=== PATIENT | female | born 1960 | race Caucasian/White ===

== ENCOUNTER 2018-01-03 20:17 | Inpatient (IN) ==
[2018-01-03] MEDS ORDERED: NITROGLYCERIN 2% OINTMENT 1gm PACKET TRANSDERMA ONE (20:26)
[2018-01-03] MEDS ORDERED: NS 1,000 ML IV ONE (20:26)
[2018-01-03] MEDS ORDERED: SALINE FLUSH 10ml SYRINGE IVF PRN (20:26)
--- NOTE | 2018-01-03 20:32 | Emergency Department Report ---
Chest Pain HPI - General Chief Complaint: Chest Pain Stated Complaint: cp Source: patient, EMS Mode of arrival: EMS Limitations: no limitations - History of Present Illness HPI narrative: Patient is felt malaise all day, and then sometime between 4 and 5 PM she began having left-sided deep aching chest pain, the same as she had 8-12 years ago with her MIs. Patient took one old nitroglycerin at home with little relief, so she called EMS. EMS gave her one nitroglycerin in route, gave her a total of 324 mg of aspirin, and her pain went from a 7 out of 10 down to a 5 out of 10. Patient has no insurance, no primary care provider, and no bed spring maker currently. Patient is to doctor with Dr. Austin in [place], but due to her financial situation she has not seen any doctors for number of years. - Related Data Home Medications Medication Instructions Recorded Confirmed DiphenhydrAMINE [Benadryl] 25 mg PO Q4H PRN 01/03/18 01/03/18 Nitroglycerin [Nitrostat] 0.4 mg SL Q5MIN3 PRN 01/03/18 01/03/18 Turmeric 1 tab PO DAILY 01/03/18 01/03/18 Allergies Allergy/AdvReac Type Severity Reaction Status Date / Time trazodone Allergy Unknown Hives Verified 01/03/18 20:36 Review of Systems All systems: reviewed and negative except as stated PFSH Patient Stated Medical History Dental Problems Yes Congestive Heart Failure Yes Hypertension Yes Hx Kidney Stones Yes Hx Urinary Tract Infection Yes Anemia Yes Osteoarthritis Yes Depression Yes Post Traumatic Stress Disorder Yes CAD/CA Hypertension, untreated Hypercholesterolemia, improved after weight loss Morbid obesity Bipolar Depression/anxiety PTSD Surgical History: 2 Coronary catheterizations with multiple stents. Elbow and finger fractures with reconstruction - Social History Smoking status: Never smoker Substance use type: does not use Alcohol intake frequency: does not drink Physical Exam - Limitations Limitations: no limitations - General General appearance: alert - Normal Exams: Head:: Normocephalic without trauma Eyes:: Pupils are PERRLA w/ EOMI, No scleral icterus, irritation, or foreign bodies noted ENMT:: No facial trauma, nasal exudates, pharyngeal erythema, or exudates are noted Neck:: Full range of motion, without adenopathy, JVD, bruits or thyromegaly Chest/Respirations:: Clear all calderon, with good airflow, and symmetry bilaterally Cardiovascular:: Regular rate and rhythm, without murmur or gallop, Pulses 2+ all extremities, capillary refill, <2 seconds all extremities Abdomen:: Bowel sounds positive, soft, non-tender, non-distended, no hepatosplenomegaly, masses or bruits noted Lymphatic:: No lymphadenopathy, or lymphedema noted Musculoskeletal:: No tenderness, or deformity noted, good range of motion, all extremities Integumentary:: No rashes, hives, or bruising noted, hair and nails, without abnormality Neurological:: Patient is alert, and oriented, cranial nerves, motor/sensory/ cerebellar, exams w/o gross deficits, to observation Psychiatric:: Patient exhibits, appropriate attention, emotion and affect - Chest Chest inspection: Present: normal inspection, symmetric chest wall rise, tenderness (mild left inframammary chest wall tenderness, patient states this is not the same as the deep aching in her chest) Course Vital Signs Temperature 98.3 F 01/03/18 20:51 Pulse Rate 66 01/03/18 20:51 Respiratory Rate 20 01/03/18 20:51 Blood Pressure 207/100 H 01/03/18 20:51 Pulse Oximetry 95 01/03/18 20:51 Temperature 98.3 F 01/03/18 20:51 Pulse Rate 60 01/03/18 23:04 Respiratory Rate 24 01/03/18 23:04 Blood Pressure 178/91 H 01/03/18 23:04 Pulse Oximetry 98 01/03/18 23:04 Chest Pain - MDM Narrative Medical decision making narrative: Patient given one additional nitroglycerin sublingually and 1 inch of paste was placed EKG shows a normal sinus rhythm without ischemia, ectopy, or infarction. CXR -normal CBC - normal CMP/L - mild elevation in sodium at 150, otherwise normal Troponin - normal initially D-dimer - normal ProBNP -normal After total of 3 nitroglycerin tablets, 1 inch of paste, and 3 doses of metoprolol 5 mg, patient is pain free and blood pressure has improved dramatically to 178/91. Second troponin drawn 2 hours after the first shows troponin is elevating, consistent with unstable angina and acute coronary syndrome. Case is discussed with ANH Gonzalez for Dr. Tucker, we will admit to surgical unit with expected cardiac catheterization first thing in the morning. - Lab Data Result diagrams: 01/03/18 20:41 01/03/18 20:41 Lab Results 01/03/18 01/03/18 01/03/18 Range/Units 20:41 20:41 20:41 WBC 10.6 (4.5-11.0) T/MM3 RBC 5.73 H (4.00-5.20) M/MM3 Hgb 16.5 H (12-16) GM/DL Hct 48.9 H (36-46) % MCV 85.3 (80-100) UM3 MCH 28.8 (26-34) UUG MCHC 33.7 (31-37) GM/DL RDW Std Deviation 40.7 (36.9-50.2) FL Plt Count 355 (130-400) T/MM3 MPV 10.0 (9.4-12.4) UM3 Immature Gran % (Auto) 0.3 (0.0-0.5) % Neut % (Auto) 41.8 (33-66) % Lymph % (Auto) 47.3 H (23-45) % [place] % (Auto) 7.5 (0-9.0) % Eos % (Auto) 2.6 (0-4) % Baso % (Auto) 0.5 (0-2) % Neut # (Auto) 4.4 (1.8-7.7) T/MM3 Lymph # (Auto) 5.0 H (1-4.8) T/MM3 [place] # (Auto) 0.8 (0-0.8) T/MM3 Eos # (Auto) 0.3 (0-0.5) T/MM3 Baso # (Auto) 0.1 (0-0.2) T/MM3 Abs Immat Gran (auto) 0.03 (0.00-0.03) T/MM3 D-Dimer 211 (0-230) NG/ML Turbidity 26 H (0-20) Sodium 150 H (134-144) MEQ/L Potassium 4.4 (3.6-5) MEQ/L Chloride 107 (98-107) MEQ/L Carbon Dioxide 28 (22-30) MEQ/L Anion Gap 15 (5-15) meq/L BUN 16.0 (7-17) MG/DL Creatinine 0.9 (0.7-1.2) mg/dL GFR Calculation 64 BUN/Creatinine Ratio 18 (6-26) RATIO Glucose 124 H (65-110) MG/DL Calculated Osmolality 290 H (261-280) MOSM/KG Calcium 10.1 (8.4-10.2) MG/DL Total Bilirubin 0.40 (0.20-1.30) MG/DL Icterus Index < 2 (0-7) AST 21 (14-36) U/L ALT 23 (1-35) U/L Alkaline Phosphatase 105 (38-126) U/L Troponin I < 0.012 (0-0.12) ng/ml NT-Pro-B Natriuret Pep 94.9 (0-175) pg/mL Total Protein 8.5 H (6.3-8.2) g/dL Albumin 4.8 (3.5-5.0) g/dL Globulin 3.7 H (2.4-3.6) G/DL Albumin/Globulin Ratio 1.3 (1.1-2.2) RATIO Lipase 157 (23-300) U/L Specimen Hemolysis < 15.0 (0-25) // Range/Units 22:37 WBC (4.5-11.0) T/MM3 RBC (4.00-5.20) M/MM3 Hgb (12-16) GM/DL Hct (36-46) % MCV (80-100) UM3 MCH (26-34) UUG MCHC (31-37) GM/DL RDW Std Deviation (36.9-50.2) FL Plt Count (130-400) T/MM3 MPV (9.4-12.4) UM3 Immature Gran % (Auto) (0.0-0.5) % Neut % (Auto) (33-66) % Lymph % (Auto) (23-45) % [place] % (Auto) (0-9.0) % Eos % (Auto) (0-4) % Baso % (Auto) (0-2) % Neut # (Auto) (1.8-7.7) T/MM3 Lymph # (Auto) (1-4.8) T/MM3 [place] # (Auto) (0-0.8) T/MM3 Eos # (Auto) (0-0.5) T/MM3 Baso # (Auto) (0-0.2) T/MM3 Abs Immat Gran (auto) (0.00-0.03) T/MM3 D-Dimer (0-230) NG/ML Turbidity (0-20) Sodium (134-144) MEQ/L Potassium (3.6-5) MEQ/L Chloride (98-107) MEQ/L Carbon Dioxide (22-30) MEQ/L Anion Gap (5-15) meq/L BUN (7-17) MG/DL Creatinine (0.7-1.2) mg/dL GFR Calculation BUN/Creatinine Ratio (6-26) RATIO Glucose (65-110) MG/DL Calculated Osmolality (261-280) MOSM/KG Calcium (8.4-10.2) MG/DL Total Bilirubin (0.20-1.30) MG/DL Icterus Index (0-7) AST (14-36) U/L ALT (1-35) U/L Alkaline Phosphatase (38-126) U/L Troponin I 0.078 D (0-0.12) ng/ml NT-Pro-B Natriuret Pep (0-175) pg/mL Total Protein (6.3-8.2) g/dL Albumin (3.5-5.0) g/dL Globulin (2.4-3.6) G/DL Albumin/Globulin Ratio (1.1-2.2) RATIO Lipase (23-300) U/L Specimen Hemolysis < 15 (0-25) Disposition Clinical Impression: Unstable angina Disposition: 02 To [facility] [place] Acute Care Condition: Improved Prescriptions: No Action Nitroglycerin [Nitrostat] 0.4 mg SL Q5MIN3 PRN PRN Reason: Chest Pain Turmeric 1 tab PO DAILY DiphenhydrAMINE [Benadryl] 25 mg PO Q4H PRN PRN Reason: Prn Orders - Seen By: physician
--- OUTSIDE RECORDS SUMMARY | 2018-01-03 20:33 | External Medical Summary ---
:1960 Author Organization eClinical[employer] Care Team Providers Name Role Phone Sj Austin Provider Role Unavailable Allergies, Adverse Reactions, Alerts Substance Reaction Event Type Trazodone Hcl *antidepressants* Info Not Available Non Drug Allergy Problems Problem Type Condition Code Onset Dates Condition Status Problem Impaired fasting glucose 790.21 Active Problem Migraine with visual aura 346.00 Active Problem Depression with anxiety 300.4 Active Problem Stented coronary artery V45.82 Active Problem Hyperlipidemia 272.4 Active Problem Coronary atherosclerosis 414.00 Active Problem Urinary calculus 592.9 Inactive Problem Tobacco abuse 305.1 Active Problem Hypertension, benign 401.1 Active Problem Obesity, morbid 278.01 Active Assessment Hyperlipidemia 272.4 Active Assessment Hypertension, benign 401.1 Active Problem Non-cardiac chest pain 786.59 Inactive Assessment Stented coronary artery V45.82 Active Problem Obstructive sleep apnea 327.23 Active Assessment Coronary atherosclerosis 414.00 Active Problem Asthma 493.90 Active Medications Medication Code Code Instructions Start End Date Status [place] [address]-00 40 MG Orally Jun 04, 1 tablet Calcium 21-05 Once a day 2012 Omeprazole NDC 04046-97 20 MG Orally Jun 04, 1 tablet 15-30 Once a day 2012 [place] [address]-57 20 MG Orally 1 tablet 68-01 Once a day Coreg NDC 47505-37 3.125 MG Orally Jun 04, 1 tablet 39-20 Twice a day 2012 [place] [address]-93 0.4 MG 1 tablet 18-13 Sublingual Every 5 minutes x3 doses as needed for [place] [address]-95 325 MG Orally 1 tablet 35-76 Once a day Procedures Procedure Coding System Code Date Office Visit, Est Pt., Level 3 CPT-4 02860 Jun 03, 2014 Vital Signs Date/Time: Jun 03, 2014 Blood Pressure Systolic 161 mm Hg Weight 290 lbs Height 65 in Oximetry 97 % Respiratory Rate 18 /min Cardiac Monitoring Heart Rate 82 /min Blood Pressure Diastolic 88 mm Hg BMI 48.25 Index Results No Known Results Summary Purpose eClinicalWorks Submission
--- OUTSIDE RECORDS SUMMARY | 2018-01-03 20:33 | External Medical Summary ---
:1960 Author Organization [employer] Care Team Providers Name Role Phone Devi Burgess Provider Role Unavailable Allergies No Known Allergies Problems Problem Type Condition ICD-9 Code Onset Dates Condition Status Problem Impaired fasting glucose 790.21 Active Problem Migraine with visual aura 346.00 Active Problem Depression with anxiety 300.4 Active Problem Stented coronary artery V45.82 Active Problem Hyperlipidemia 272.4 Active Problem Coronary atherosclerosis 414.00 Active Problem Urinary calculus 592.9 Inactive Problem Tobacco abuse 305.1 Active Problem Hypertension, benign 401.1 Active Problem Obesity, morbid 278.01 Active Problem Non-cardiac chest pain 786.59 Inactive Problem Obstructive sleep apnea 327.23 Active Problem Asthma 493.90 Active Medications No Known Medications Results No Known Results Summary Purpose eClinicalWorks Submission
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
--- OUTSIDE RECORDS SUMMARY | 2018-01-03 20:33 | External Medical Summary ---
:1960 Author Organization eClinicalWorks Care Team Providers Name Role Phone Sj Austin Provider Role Unavailable Allergies, Adverse Reactions, Alerts Substance Reaction Event Type Trazodone Hcl *antidepressants* Info Not Available Non Drug Allergy Problems Problem Type Condition Code Onset Dates Condition Status Problem Depression with anxiety 300.4 Active Problem Tobacco abuse 305.1 Active Problem Migraine with visual aura 346.00 Active Problem Coronary atherosclerosis 414.00 Active Problem Stented coronary artery V45.82 Active Problem Congestive heart failure 428.0 Active Problem Obesity, morbid 278.01 Active Problem Urinary calculus 592.9 Inactive Problem Hyperlipidemia 272.4 Active Problem Hypertension, benign 401.1 Active Assessment Stented coronary artery V45.82 Active Assessment Hypertension, benign 401.1 Active Problem Non-cardiac chest pain 786.59 Inactive Problem Obstructive sleep apnea 327.23 Active Assessment Hyperlipidemia 272.4 Active Problem Asthma 493.90 Active Assessment Coronary atherosclerosis 414.00 Active Problem Impaired fasting glucose 790.21 Active Medications Medication Code Code Instructions Start End Date Status Dosage System Date Nitrostat [facility] 69192-97 0.4 MG 1 tablet 18-13 Sublingual Every 5 minutes x3 doses as needed for [place] [address]-14 325 MG Orally 1 tablet 48-17 [place] [address]-12 40 MG Orally Jun 04, 1 tablet Calcium 21-05 Once a day 2012 Coreg NDC 96310-22 3.125 MG Orally Jun 04, 1 tablet 39-20 Twice a day 2012 [place] [address]-84 20 MG Orally 1 tablet 68-01 [place] [address]-79 75 MG Orally December 12, 1 tablet 03-99 Once a day 2014 Procedures Procedure Coding System Code Date Office Visit, Est Pt., Level 3 CPT-4 97249 December 16, 2014 Vital Signs Date/Time: December 16, 2014 Blood Pressure Systolic 142 mm Hg Weight 285 lb 6 oz lbs Height 65 in Oximetry 97 % Respiratory Rate 16 /min Cardiac Monitoring Heart Rate 77 /min Blood Pressure Diastolic 84 mm Hg BMI 47.48 Index Results No Known Results Summary Purpose eClinicalWorks Submission
--- OUTSIDE RECORDS SUMMARY | 2018-01-03 20:33 | External Medical Summary ---
:1960 Author Organization eClinicalWorks Care Team Providers Name Role Phone Sj Austin Provider Role Unavailable Allergies No Known Allergies Problems Problem Type Condition Code Onset Dates [...]
--- OUTSIDE RECORDS SUMMARY | 2018-01-03 20:33 | External Medical Summary | Referral Summary ---
:1960 Author Care Team Providers Name Role Phone Devi Burgess Primary Care Physician Encounter VC Date(s): 12/06/14 - 12/09/14 [facility] [address] [place] [address] Discharge Disposition: Home or Self Care Attending Physician: Nury Nichole MD Admitting Physician: Nury Nichole MD Vital Signs Most recent to oldest [Reference Range]: 1 Temperature Oral [35.8-37.3 degC] 36.5 degC (12/07/14 11:31 AM) Temperature Temporal Artery [36.3-37.8 degC] 35.9 degC *LOW* (12/09/14 8:00 AM) Peripheral Pulse Rate [60-100 bpm] 84 bpm (12/09/14 9:06 AM) Heart Rate Monitored [60-100 bpm] 61 bpm (12/09/14 12:00 PM) Respiratory Rate [14-20 br/min] 18 br/min (12/09/14 12:00 PM) Blood Pressure [90-140/60-90 mmHg] 169/92 mmHg *HI* (12/09/14 12:00 PM) Mean Arterial Pressure, Cuff 117 mmHg (12/09/14 12:00 PM) Most recent to oldest [Reference Range]: 1 SpO2 97 % (12/09/14 12:00 PM) Problem List Condition Effective Dates Status Health Status Informant Acute pain(Confirmed) Active At risk for injury(Confirmed)1 Active Bipolar disorder(Confirmed) Active patient Coronary artery disease(Confirmed)2 Active patient Depression(Confirmed) Active DM (diabetes mellitus)(Confirmed) Active patient Heart failure(Confirmed) Active Hyperlipidemia(Confirmed) Active Hypertension(Confirmed) Active patient Impaired gas exchange(Confirmed)3 Active Myocardial infarction(Confirmed) Active PTSD (post-traumatic stress Active disorder)(Confirmed) TMJ disease(Confirmed) Active Tissue perfusion Active alteration(Confirmed)4 1Problem added automatically by system based on initiation of Risk for Injury Plan of [id number] added automatically by system based on initiation of Impaired Gas Exchange Plan of [id number] added automatically by system based on initiation of Tissue Perfusion Cerebral Plan of Care Allergies, Adverse Reactions, Alerts Substance Reaction Severity Status traZODone Adverse Reaction Active Medications aspirin 81 mg oral delayed release tablet 1 tabs, Oral, Daily, # 30 tabs, 0 Refill(s) Start Date: 12/02/14 Stop Date: 01/01/15 Status: Orderedatorvastatin 40 mg oral tablet 40 mg, Oral, Bedtime (once a day), # 30 tabs, 0 Refill(s) Start Date: 12/02/14 Stop Date: 01/01/15 Status: OrderedBenadryl 50 mg, Oral, TID, Headache, 0 Refill(s) Start Date: 07/01/14 Status: OrderedCoreg 6.25 mg oral tablet 1 tabs, Oral, BIDWM, # 60 tabs, 3 Refill(s) Start Date: 12/09/14 Status: Orderedlisinopril 20 mg oral tablet 20 mg, Oral, Daily, # 30 tabs, 0 Refill(s) Start Date: 12/02/14 Stop Date: 01/01/15 Status: OrderedOTC Nasel Linden OTC Nasel Linden, 1 sprays, Nasal, TID, PRN Nasal Congestion, 0 Refill(s) Start Date: 12/01/14 Status: OrderedPlavix 75 mg oral tablet 1 tabs, Oral, Daily, # 30 tabs, 11 Refill(s) Start Date: 12/09/14 Status: OrderedTylenol Extra Strength 500 mg, Oral, q6hr, Headache, 0 Refill(s) Start Date: 07/01/14 Status: Ordered Results Hematology Most recent to oldest [Reference Range]: 1 WBC [4.8-10.8 K/uL] 7.1 K/uL (12/09/14 3:49 AM) RBC [4.00-5.20 M/uL] 4.68 M/uL (12/09/14 3:49 AM) Hgb [12.0-16.0 gm/dL] 13.6 gm/dL (12/09/14 3:49 AM) Hct [37.0-47.0 %] 40.6 % (12/09/14 3:49 AM) MCV [82.0-99.0 fL] 86.8 fL (12/09/14 3:49 AM) MCH [27.0-32.0 pg] 29.1 pg (12/09/14 3:49 AM) MCHC [32.0-36.0 gm/dL] 33.5 gm/dL (12/09/14 3:49 AM) RDW [11.5-14.5 %] 12.9 % (12/09/14 3:49 AM) Platelet [150-400 K/uL] 222 K/uL (12/09/14 3:49 AM) MPV [9.4-12.4 fL] 10.0 fL (12/09/14 3:49 AM) Immature Granulocytes [0.0-1.0 %] 0.2 % (12/06/14 2:19 PM) Neutrophils [51-75 %] 66 % (12/06/14 2:19 PM) Lymphocytes [20-46 %] 26 % (12/06/14 2:19 PM) Monocytes [4-11 %] 6 % (12/06/14 2:19 PM) Eosinophils [0-4 %] 2 % (12/06/14 2:19 PM) Basophils [0-2 %] 0 % (12/06/14 2:19 PM) Neutro Absolute [1.90-7.00 THOUS] 7.54 THOUS *HI* (12/06/14 2:19 PM) Lymph Absolute [0.80-3.30 THOUS] 3.00 THOUS (12/06/14 2:19 PM) [place] Absolute [0.30-1.00 THOUS] 0.67 THOUS (12/06/14 2:19 PM) Eos Absolute [0.00-0.50 THOUS] 0.18 THOUS (12/06/14 2:19 PM) Baso Absolute [0.00-0.20 THOUS] 0.02 THOUS (12/06/14 2:19 PM) Nucleated RBC Automated [0 /100 WBC] 0.0 /100 WBC (12/06/14 2:19 PM) Coagulation Most recent to oldest [Reference Range]: 1 INR [0.9-1.2] 1.0 (12/06/14 2:19 PM) Chemistry Most recent to oldest [Reference Range]: 1 Sodium Lvl [136-144 mEq/L] 139 mEq/L (12/09/14 3:49 AM) Potassium Lvl [3.6-5.1 mEq/L] 4.2 mEq/L (12/09/14 3:49 AM) Chloride [99-109 mEq/L] 109 mEq/L (12/09/14 3:49 AM) CO2 [22-32 mEq/L] 25 mEq/L (12/09/14 3:49 AM) AGAP [3-20] 5 (12/09/14 3:49 AM) BUN [4-20 mg/dL] 12 mg/dL (12/09/14 3:49 AM) Glucose Lvl [70-100 mg/dL] 116 mg/dL *HI* (12/09/14 3:49 AM) Creatinine Lvl [0.44-1.03 mg/dL] 0.68 mg/dL (12/09/14 3:49 AM) eGFR [>60] >60 3 (12/09/14 3:49 AM) Calcium Lvl [8.6-10.0 mg/dL] 9.0 mg/dL (12/09/14 3:49 AM) Albumin Lvl [3.5-4.8 gm/dL] 3.5 gm/dL (12/09/14 3:49 AM) Total Protein [6.1-7.9 gm/dL] 7.4 gm/dL (12/06/14 11:05 AM) Globulin [1.9-4.3 gm/dL] 3.4 gm/dL (12/06/14 11:05 AM) ALT [14-54 unit/L] 23 unit/L (12/06/14 11:05 AM) AST [15-41 unit/L] 16 unit/L (12/06/14 11:05 AM) Alk Phos [26-104 unit/L] 84 unit/L (12/06/14 11:05 AM) Bili Total [0.2-1.2 mg/dL] 0.5 mg/dL 2 (12/06/14 11:05 AM) Magnesium Lvl [1.8-2.5 mg/dL] 2.0 mg/dL (12/09/14 3:49 AM) Phosphorus [2.4-4.7 mg/dL] 3.1 mg/dL 1 (12/09/14 3:49 AM) Troponin [<0.06 ng/mL] <0.05 ng/mL (12/07/14 6:03 AM) 1Result Comment: High dosages of liposomal Amphotericin B (AmBisome) therapy or other drug preparations that use a liposomal envelope to facilitate drug delivery may cause falsely elevated results for phosphorus.2Result Comment: Naproxen, specifically the metabolite O-desmethylnaproxen, may cause spurious elevation in Total Bilirubin levels.3Result Comment: Multiply eGFR results by 1.21 for race. Immunizations Vaccine Date Refusal Reason influenza virus vaccine, live 07/17/12 Procedures Procedure Date Related Diagnosis Body Site Broken nose 07/2012 Cardiac catheterization of right and left heart 2010 for ventriculography Cardiac catheterization of right and left heart 2007 for ventriculography Dislocated finger 1978 Hx of elbow surgery 1972 Tubal ligation Social History Social History Type Response Smoking Status Current every day smoker; Type: Cigarettes; Tobacco use per day : Less than Pack; Number of years: 49; Started at age: 12 Assessment and Plan No data available for this section
--- OUTSIDE RECORDS SUMMARY | 2018-01-03 20:33 | External Medical Summary ---
[...] 272.4 Active Problem Hypertension, benign 401.1 Active Problem Non-cardiac chest pain 786.59 Inactive Problem Obstructive sleep apnea 327.23 Active Problem Asthma 493.90 Active Problem Impaired fasting glucose 790.21 Active Medications No Known Medications Results No Known Results Summary Purpose eClinicalWorks Submission
--- OUTSIDE RECORDS SUMMARY | 2018-01-03 20:33 | External Medical Summary ---
:1960 Author Organization eClinicalWorks Care Team Providers Name Role Phone Devi Burgess Provider Role Unavailable Allergies, Adverse Reactions, Alerts Substance Reaction Event Type Trazodone Hcl *antidepressants* Info Not Available Non Drug Allergy Problems Problem Type Condition ICD-9 Code Onset [...] Active Problem Obesity, morbid 278.01 Active Assessment Allergic rhinitis 477.9 Active Assessment Migraine with visual aura 346.00 Active Problem Non-cardiac chest pain 786.59 Inactive Assessment TMJ (temporomandibular joint 524.60 Active syndrome) Problem Obstructive sleep apnea 327.23 Active Assessment Tobacco abuse 305.1 Active Problem Asthma 493.90 Active Medications Medication Code Code Instructions Start End Date Status [place] [address]-39 40 MG Orally Oct 07, 1 tablet Calcium 21-05 Once a day 2012 [place] [address]-69 20 MG Orally 1 tablet 68-01 Once a day Omeprazole NDC 47271-68 20 MG Orally Oct 07, 1 tablet 15-30 Once a day 2012 [place] [address]-20 0.4 MG 1 tablet 18-13 Sublingual Every 5 minutes x3 doses [place] [address]-58 3.125 MG Orally Oct 07, 1 tablet 39-20 Twice a day 2012 [place] [address]-43 81 MG Orally 1 tablet 35-76 Once a day Procedures Procedure Coding System Code Date Office Visit, Est Pt., Level 3 CPT-4 02690 May 21, 2014 Vital Signs Date/Time: May 21, 2014 Blood Pressure Systolic 138 mm Hg Weight 295 lbs Height 65 in BMI 49.09 Index Respiratory Rate 18 /min Cardiac Monitoring Heart Rate 82 /min Blood Pressure Diastolic 84 mm Hg Results No Known Results Summary Purpose eClinicalWorks Submission
--- OUTSIDE RECORDS SUMMARY | 2018-01-03 20:33 | External Medical Summary ---
[...] apnea 327.23 Active Problem Asthma 493.90 Active Assessment Hyperlipidemia 272.4 Active Problem Impaired fasting glucose 790.21 Active Medications Medication Code Code Instructions Start End Date Status Dosage System Date Ranitidine HCl [facility] 88599-46 150 MG Orally 1 December 12, 1 capsule 55-05 daily 2014 [place] [address]-15 325 MG Orally 1 tablet 48-17 [place] [address]-73 0.4 MG 1 tablet 18-13 Sublingual Every 5 minutes x3 doses as needed [place] [address]-05 7 MG/24HR December 12, patch to 20-07 Transdermal Once 2014 [place] [address]-09 20 MG Orally 1 tablet 68-01 [place] [address]-66 40 MG Orally May 07, 1 tablet Calcium 21-05 Once a [place] [address]-95 3.125 MG Orally Jun 04, 1 tablet 39-20 Twice a day 2012 [place] [address]-22 75 MG Orally December 12, 1 tablet 03-99 Once a day 2014 Results No Known Results Summary Purpose eClinicalWorks Submission
--- OUTSIDE RECORDS SUMMARY | 2018-01-03 20:33 | External Medical Summary ---
:1960 Author Organization eClinicalWorks Care Team Providers Name Role Phone Alyson Negron Provider Role Unavailable Allergies, Adverse Reactions, Alerts [...] Active Problem Obesity, morbid 278.01 Active Assessment Coronary atherosclerosis 414.00 Active Problem Non-cardiac chest pain 786.59 Inactive Assessment Diaphoresis 780.8 Active Problem Obstructive sleep apnea 327.23 Active Assessment Lightheaded 780.4 Active Problem Asthma 493.90 Active Medications Medication Code Code Instructions Start End Date Status Dosage System Date Omeprazole NDC 59547-44 20 MG Orally May 07, 1 tablet 15-30 Once a day 2012 [place] [address]-32 0.4 MG 1 tablet 18-13 Sublingual Every 5 minutes x3 doses [place] [address]-48 3.125 MG Orally May 07, 1 tablet 39-20 Twice a day 2012 with food Lisinopril NDC 47087-28 20 MG Orally 1 tablet 68-01 Once a day Aspirin EC NDC 54575-73 325 MG Orally 1 tablet 35-76 [place] [address]-41 40 MG Orally Oct 07, 1 tablet Calcium 21-05 Once a day 2012 Procedures Procedure Coding System Code Date -ELECTROCARDIOGRAM, COMPLETE CPT-4 92035 December 06, 2014 Office Visit, Est Pt., Level 5 CPT-4 50209 December 06, 2014 Vital Signs Date/Time: December 06, 2014 Temperature 98.1 F Weight 293 lbs Height 65 in Respiratory Rate 16 /min Cardiac Monitoring Heart Rate 100 /min Blood Pressure Diastolic 100 mm Hg Blood Pressure Systolic 130 mm Hg BMI 48.75 Index Results No Known Results Summary Purpose eClinicalWorks Submission
[2018-01-03] MEDS: NITROGLYCERIN 0.4 MG SUBLINGUAL TABLET SL PRN ×2 (20:41→20:49)
[2018-01-03] MEDS: METOPROLOL 5mg/5ml INJECTION IVP SCH ×3 (21:23→21:50)
[2018-01-04] MEDS ORDERED: HEPARIN - PHARMACY CONSULT MC ONE (00:26)
[2018-01-04 00:42] VITALS: BMI 45.3
[2018-01-04] MEDS ORDERED: ONDANSETRON 4 MG/2 ML INJECTION IVP PRN ×2 (01:16→14:32)
[2018-01-04] MEDS ORDERED: MORPHINE SULFATE 4mg INJECTION IVP PRN ×3 (01:17→14:32)
[2018-01-04] MEDS ORDERED: HYDRALAZINE 20 MG/ML INJECTION IVP PRN (01:25)
[2018-01-04] MEDS ORDERED: HEPARIN 1,000unit/ml INJECTION 10ml IVP ONE (01:36)
[2018-01-04] MEDS ORDERED: HEPARIN DRIP 20,000 UNIT/500 ML BAG IV SCH (01:45)
[2018-01-04] MEDS: LISINOPRIL 5 MG TABLET PO SCH ×2 (02:13→08:49)
[2018-01-04] MEDS: NITROGLYCERIN 2% OINTMENT 1gm PACKET TP SCH ×4 (02:13→16:36)
[2018-01-04] MEDS ORDERED: NS 1,000 ML IV SCH (07:00)
--- NOTE | 2018-01-04 07:52 | XRay Report ---
Indication: left inframammary chest pain PROCEDURE: XR chest 1V: Encounter: Initial Comparison: None FINDINGS: The lungs are clear. There is no abnormal airspace opacity, pleural effusion or pneumothorax identified. The heart size, pulmonary vasculature and mediastinum are within normal limits. No significant skeletal abnormality is seen. IMPRESSION: No acute cardiopulmonary abnormality. .
--- NOTE | 2018-01-04 08:41 | Pharmacy Consult ---
Pharmacy Consult-Heparin - Laboratory Information Heparin Plt Count 321 T/MM3 (130-400) 01/04/18 01:42 - Consult Information HEPARIN CONSULT (Initial): Dx: Chest Pain, unstable angina LL is a 57 yo female, who felt malaise all day, and then sometime between 4 and 5 PM she began having left-sided deep aching chest pain, the same as she had 8- 12 years ago with her MIs. Patient took one old nitroglycerin at home with little relief, so she called EMS. EMS gave her one nitroglycerin in route, gave her a total of 324 mg of aspirin, and her pain went from a 7 out of 10 down to a 5 out of 10. Patient has no insurance, no primary care provider, and no banking teacher currently. Patient is to doctor with Dr. Austin in [place], but due to her financial situation she has not seen any doctors for number of years. Baseline PTT = none drawn Baseline platelet count = 321 T/mm3. PTT Target Range = 50-75 secs (Cardiac) Patient was given Heparin Bolus of 7,400 units, and a Heparin Drip was started at 1,480 units/hr (37 ml/hr). The pharmacy will continue to monitor and make adjustments accordingly. Thank you for the Heparin Protocol, Mert Rojas, Pharmacist.
[2018-01-04] MEDS ORDERED: ASPIRIN *EC* 81 MG TABLET PO SCH (09:00)
[2018-01-04 09:04] VITALS: TEMP 98.5
--- NOTE | 2018-01-04 09:35 | Pharmacy Consult ---
Pharmacy Consult-Heparin - Laboratory Information Heparin Plt Count 321 T/MM3 (130-400) 01/04/18 01:42 APTT 98.5 SEC (24-36) H 01/04/18 08:25 - Consult Information PTT at 98.5 seconds. We will reduce heparin drip to 30mL per hour (1,200 units per hour). PTT at 1600 today and adjust if needed. PTT target range of 50-75 seconds. Thanks
[2018-01-04] MEDS ORDERED: LISINOPRIL 5 MG TABLET PO ONE (10:00)
[2018-01-04] MEDS ORDERED: HEPARIN 1,000 UNITS/500 ML PREMIX (*CVL ONLY*) IV ONE ×2 (10:45→12:36)
[2018-01-04] MEDS ORDERED: IOHEXOL 350mg/ml 200ml BOTTLE ONE (10:45)
[2018-01-04] MEDS ORDERED: LIDOCAINE 1% (10mg/ml) 30ml SDV INJ ONE ×2 (10:45→12:36)
--- NOTE | 2018-01-04 11:52 | Cardiology History & Physical ---
History of Present Illness Chief complaint: chest pain HPI: Marcella is a 57 year old female with a history of MA, CAD with coronary stents, HTN, HLD, and morbid obesity who was evaluated last night in the ED at [facility] with complaints of malaise all day, and then sometime between 4 and 5 PM she began having left-sided deep aching chest pain, the same as she had 10 years ago with her MA. She took one old nitroglycerin at home with little relief, so she called EMS. EMS gave her one nitroglycerin in route, gave her a total of 324 mg of aspirin, and her pain went from a 7 out of 10 down to a 5 out of 10. She has no insurance, no primary care provider, and no manager energy currently. She formerly saw Dr. Austin in [place], but due to her financial situation she has not seen any doctors for number of years. She is examined by Dr. Villafuerte this morning. She denies recent illness, fever, chills, sore throat, dyspnea, palpitations, N/V/D, dysuria Review of Systems - Constitutional Constitutional: Present: as per HPI - EENMT Eyes: Absent: change in vision Balance: Absent: vertigo Mouth/Throat: Present: as per HPI - Cardiovascular Cardiovascular: Present: chest pain. Absent: palpitations, syncope, dyspnea on exertion, orthopnea, edema, heart murmur Rhythm: Absent: abnormal rhythm Vascular: Absent: pedal edema - Respiratory Respiratory: Present: as per HPI - Gastrointestinal Gastrointestinal: Present: as per HPI - Genitourinary Genitourinary: Present: as per HPI - Integumentary/Breasts Integumentary: Absent: rash - Neurological Neurological: Absent: dizziness - Endocrine Endocrine: Absent: palpitations PFSH Patient Stated Medical History Migraine Yes Dental Problems Yes: grind teeth, root canals, TMJ Angina Yes Congestive Heart Failure Yes Hypertension Yes Myocardial Infarction Yes Hx Kidney Stones Yes Hx Urinary Tract Infection Yes Anemia Yes Osteoarthritis Yes Blood Transfusions Yes: had a reaction to blood- "it was old blood " Depression Yes Post Traumatic Stress Disorder Yes Surgical History: 2 Coronary catheterizations with multiple stents. Elbow and finger fractures with reconstruction Family History: Father - MA, age 67, cause of Mother - DM, CVA, Still living - Social History Smoking status: Never smoker Substance use type: does not use Alcohol intake frequency: does not drink Current occupational status: disabled Current residence: Apartment/Private Home Medications Home Medications Medication Instructions Recorded Confirmed Type DiphenhydrAMINE [Benadryl] 25 mg PO Q4H PRN 01/03/18 01/03/18 History Nitroglycerin [Nitrostat] 0.4 mg SL Q5MIN3 PRN 01/03/18 01/03/18 History Turmeric 1 tab PO DAILY 01/03/18 01/03/18 History Aspirin *EC* [Ecotrin] 81 mg PO DAILY #30 tab 01/04/18 Rx Atorvastatin [Lipitor] 40 mg PO HS #30 tab 01/04/18 Rx Lisinopril [Prinivil] 10 mg PO DAILY #30 tab 01/04/18 Rx Metoprolol Tartrate [Lopressor] 25 mg PO BIDWM #60 tab 01/04/18 Rx Nitroglycerin [Nitrostat] 0.4 mg SL Q5MIN3 PRN #25 tab 01/04/18 Rx Allergies Allergy/AdvReac Type Severity Reaction Status Date / Time trazodone Allergy Unknown Hives Verified 01/03/18 20:36 Exam Vital signs: Temperature 98.5 F 01/04/18 08:23 Pulse Rate 72 01/04/18 09:05 Respiratory Rate 14 01/04/18 09:05 Blood Pressure 186/111 H 01/04/18 08:23 Pulse Oximetry 97 01/04/18 09:05 - Constitutional no acute distress, morbidly obese, cooperative - Routine HEENT Exam Head: Present: normocephalic ENT: Present: mucous membranes dry - Routine Neck Exam Absent: JVD, carotid bruit - Routine Chest/Breast/Axilla Exam Chest wall: Absent: tenderness - Routine Respiratory Exam Present: rales (bibasilar), diminished air movement. Absent: dyspnea - Routine Cardiovascular Exam Present: RRR, no murmur - Routine Abdominal Exam Present: soft, non tender - Routine Extremities Exam Present: no edema - Routine Skin Exam Present: intact, dry, warm - Routine Neurological Exam Present: alert, oriented X3 - Routine Psychiatric Exam Present: normal affect, normal thought process Results 01/04/18 01:42 01/04/18 01:42 Cardiac Enzymes 01/04/18 01/04/18 01/04/18 Range/Units 01:42 01:42 08:25 AST 21 (14-36) U/L Troponin I 0.329 H D 2.890 H D (0-0.12) ng/ml Coagulation 01/04/18 Range/Units 08:25 APTT 98.5 H (24-36) SEC Lipids 01/04/18 Range/Units 01:42 Triglycerides 129 (35-135) mg/dL Cholesterol 184 (132-199) mg/dL HDL Cholesterol 52 (40-60) mg/dL Cholesterol/HDL Ratio 3.5 (0-4.0) RATIO CBC 01/04/18 Range/Units 01:42 WBC 8.8 (4.5-11.0) T/MM3 RBC 5.23 H (4.00-5.20) M/MM3 Hgb 15.0 (12-16) GM/DL Hct 45.3 (36-46) % Plt Count 321 (130-400) T/MM3 Neut # (Auto) 5.6 (1.8-7.7) T/MM3 Lymph # (Auto) 2.4 (1-4.8) T/MM3 [place] # (Auto) 0.5 (0-0.8) T/MM3 Eos # (Auto) 0.2 (0-0.5) T/MM3 Baso # (Auto) 0.0 (0-0.2) T/MM3 Comprehensive Metabolic Panel 01/04/18 Range/Units 01:42 Sodium 148 H (134-144) MEQ/L Potassium 4.8 (3.6-5) MEQ/L Chloride 109 H (98-107) MEQ/L Carbon Dioxide 27 (22-30) MEQ/L BUN 17.0 (7-17) MG/DL Creatinine 1.1 D (0.7-1.2) mg/dL Glucose 121 H (65-110) MG/DL Calcium 9.3 (8.4-10.2) MG/DL AST 21 (14-36) U/L ALT 21 (1-35) U/L Alkaline Phosphatase 100 (38-126) U/L Total Protein 7.7 (6.3-8.2) g/dL Albumin 4.2 (3.5-5.0) g/dL Intake and Output 01/03/18 01/04/18 01/04/18 22:59 06:59 14:59 Intake Total 254.683 / 254.683 Balance 254.683 / 254.683 Intake: IV 254.683 / 254.683 Heparin Drip 20,000 unit In 500 254.683 / 254.683 ml @ 30 mls/hr IV .[id number] [facility] Rx#:[id number] Other: # Voids 1 1 Weight 272 lb 14.916 oz 274 lb 0.553 oz Patient Weight 01/05/18 06:59 Weight 274 lb 0.553 oz - Imaging and Cardiology Imaging & Cardiology Narrative: Date of Exam: 01/03/18 Ordering Provider: Yunier Kaur MD Type of Exam(s): XR chest 1V Reason for Exam(s): left inframammary chest pain Indication: left inframammary chest pain PROCEDURE: XR chest 1V: Encounter: Initial Comparison: None FINDINGS: The lungs are clear. There is no abnormal airspace opacity, pleural effusion or pneumothorax identified. The heart size, pulmonary vasculature and mediastinum are within normal limits. No significant skeletal abnormality is seen. IMPRESSION: No acute cardiopulmonary abnormality. 01/04/18 12:52 EKG interpretations - EKG EKG results cardiology: sinus rhythm - MA, pacemaker, normal Myocardial infarction: septal MA (old age or indeterminate) Hospital Course This is a general summary of the patient's hospital course. For more details refer to the complete medical record. Time spent with patient: 25 - 35 minutes Resuscitation Status: Full Code Assessment and Plan - Attestation Attestation Narrative: 01/12/18 13:36 Recommendation After examining the patient I agree with the above assessment. I am involved in the formulation of the patient's plan of care. - Assessment and Plan (1) NSTEMI (non-ST elevated myocardial infarction) Status: Acute Chest pain began around 1600 yesterday - Troponin 1) <0.012, 2) 0.078, 3) 0.329, 4)2.890 - EKG: SR, septal MA indeterminate age - Aspirin 81mg daily, Lisinopril, Metoprolol and Atorvastatin - lipid panel - 2D echo - Left heart cath with possible PCI today (2) Unstable angina Status: Acute Angina suspeciuos for ischemia with known history of MA, CAD with stents (3) Atherosclerotic heart disease of [place] coronary artery without angina pectoris Status: Chronic (4) Essential (primary) hypertension Status: Chronic Has not treated for last "couple of years" per patient - 2D echo (5) Mixed hyperlipidemia Status: Chronic Lipid panel - Atorvastatin 40mg daily at HS (6) Morbid obesity Status: Acute
[2018-01-04] MEDS ORDERED: FentaNYL 250 MCG/5 ML INJECTION ONE (12:44)
[2018-01-04] MEDS ORDERED: MIDAZOLAM 2mg/2ml INJECTION ONE (12:44)
[2018-01-04] MEDS ORDERED: NITROGLYCERIN 50MG INJECTION IV ONE (12:59)
[2018-01-04] MEDS ORDERED: Verapamil 5 MG/2 ML VIAL ONE (12:59)
[2018-01-04] MEDS ORDERED: HEPARIN 1,000unit/ml INJECTION 10ml ONE (13:00)
--- NOTE | 2018-01-04 13:33 | Echocardiogram ---
DATE OF PROCEDURE January 04, 2018 This is a two-dimensional echo with spectral Doppler, color-flow and M-mode. It was obtained in a patient with unstable angina. Left atrium is dilated. Left ventricle end-diastolic dimension is normal. Left ventricle wall thickness increased. LV systolic function is normal with ejection fraction of 62%. Right atrium is normal. Right ventricle is normal. Aortic root dimension is normal. Mitral valve is morphologically normal with mild mitral regurgitation. Aortic valve is a trileaflet structure with no stenosis. Trace of aortic insufficiency is present. Tricuspid valve shows mild tricuspid regurgitation with moderate pulmonary hypertension with estimated pulmonary artery systolic pressure of 53. Pulmonary valve shows trace of pulmonary insufficiency. There is no pericardial effusion. IMPRESSION 1. Normal LV systolic function with ejection fraction of 62%. 2. Left atrial dilation. 3. Left ventricular hypertrophy. 4. Mild mitral regurgitation. 5. Trace of aortic insufficiency. 6. Mild tricuspid regurgitation with moderate pulmonary hypertension with estimated pulmonary artery systolic pressure of 53. 7. Trace of pulmonary insufficiency. MTDD
[2018-01-04] MEDS ORDERED: BISACODYL 10 MG SUPPOSITORY RECTALLY PRN (14:32)
[2018-01-04] MEDS ORDERED: HYDROCODONE/APAP 5mg/325mg TABLET PO PRN (14:32)
[2018-01-04] MEDS ORDERED: LORazepam 0.5 MG TABLET PO PRN (14:32)
[2018-01-04] MEDS ORDERED: NITROGLYCERIN 0.4 MG SUBLINGUAL TABLET SL PRN (14:32)
[2018-01-04] MEDS ORDERED: ATROPINE 1 MG/ML INJECTION IVP PRN (14:32)
[2018-01-04] MEDS ORDERED: ACETAMINOPHEN 325 MG TABLET PO PRN (14:32)
[2018-01-04] MEDS ORDERED: PROMETHAZINE 25 MG INJECTION IVP PRN (14:32)
[2018-01-04] MEDS ORDERED: METOCLOPRAMIDE 10mg/2ml INJECTION IVP PRN (14:32)
[2018-01-04] MEDS ORDERED: MAG-AL + SIM ORAL LIQUID 30ml PO PRN (14:32)
[2018-01-04] MEDS ORDERED: Bisacodyl EC TAB 5 MG TABLET PO PRN (14:32)
--- NOTE | 2018-01-04 14:41 | Discharge Summary ---
<Shell Edwards - Last Filed: 01/04/18 14:38> Discharge Information Date of admission: 01/03/18 23:49 Anticipated date of discharge: 01/04/18 Attending Physician: Roel Villafuerte MD Consults: 01/04/18 14:32 Outpt Cardiac Rehab Consult [CONS] Routine - Discharge Diagnosis (1) NSTEMI (non-ST elevated myocardial infarction) Status: Acute (2) Unstable angina Status: Acute (3) Atherosclerotic heart disease of [place] coronary artery without angina pectoris Status: Chronic (4) Essential (primary) hypertension Status: Chronic (5) Mixed hyperlipidemia Status: Chronic (6) Morbid obesity Status: Acute Severe multivessel CAD, NSTEMI - Procedures Procedures: [facility], report pending - Laboratory Labs: 01/04/18 01:42 01/04/18 01:42 History of Present Illness HPI: Marcella is a 57 year old female with a history of SC, CAD with coronary stents, HTN, HLD, and morbid obesity who was [place] last [place] [facility] [place] complaints of malaise all day, and then sometime between 4 and 5 PM she began having left-sided deep aching chest pain, the same as she had 10 years ago with her SC. She took one old nitroglycerin at home with little relief, so she called EMS. EMS gave her one nitroglycerin in route, gave her a total of 324 mg of aspirin, and her pain went from a 7 out of 10 down to a 5 out of 10. She has no insurance, no primary care provider, and no crm administrator currently. She formerly saw Dr. Austin in [place], but due to her financial situation she has not seen any doctors for number of years. She is examined by Dr. Villafuerte this morning. She denies recent illness, fever, chills, sore throat, dyspnea, palpitations, N/V/D, dysuria Hospital Course This is a general summary of the patient's hospital course. For more details refer to the complete medical record. Hospital course: NSTEMI (non-ST elevated myocardial infarction) Current visit: Yes Status: Acute Chest pain began around 1600 yesterday - Troponin 1) <0.012, 2) 0.078, 3) 0.329, 4)2.890 - EKG: SR, septal SC indeterminate age - Aspirin 81mg daily, Lisinopril, Metoprolol and Atorvastatin - lipid panel - 2D echo - Left heart cath with possible PCI today Unstable angina Current visit: Yes Status: Acute Angina suspeciuos for ischemia with known history of SC, CAD with stents Atherosclerotic heart disease of [place] coronary artery without angina pectoris Current visit: Yes Status: Chronic Essential (primary) hypertension Current visit: Yes Status: Chronic Has not treated for last "couple of years" per patient - 2D echo Mixed hyperlipidemia Current visit: Yes Status: Chronic Lipid panel - Atorvastatin 40mg daily at HS Morbid obesity Current visit: Yes Status: Acute Time spent with patient: 25 - 35 minutes Resuscitation Status: Full Code Exam Vital signs: Temperature 98.5 F 01/04/18 08:23 Pulse Rate 60 01/04/18 13:39 Respiratory Rate 14 01/04/18 13:39 Blood Pressure 139/75 01/04/18 13:39 Pulse Oximetry 95 01/04/18 13:39 - Constitutional no acute distress, morbidly obese, cooperative - Routine HEENT Exam Head: Present: normocephalic ENT: Present: mucous membranes moist - Routine Neck Exam Absent: JVD, carotid bruit - Routine Chest/Breast/Axilla Exam Chest wall: Absent: tenderness - Routine Respiratory Exam Present: decreased breath sounds, rales (bibasilar). Absent: dyspnea - Routine Cardiovascular Exam Present: RRR, no murmur - Routine Abdominal Exam Present: soft, non tender - Routine Extremities Exam Present: no edema - Routine Skin Exam Present: intact, dry, warm - Routine Neurological Exam Present: alert, oriented X3 - Routine Psychiatric Exam Present: normal affect, normal thought process Results 01/04/18 01:42 01/04/18 01:42 Cardiac Enzymes 01/04/18 01/04/18 01/04/18 Range/Units 01:42 01:42 08:25 AST 21 (14-36) U/L Troponin I 0.329 H D 2.890 H D (0-0.12) ng/ml Coagulation 01/04/18 Range/Units 08:25 APTT 98.5 H (24-36) SEC Lipids 01/04/18 01/04/18 Range/Units 01:42 14:10 Triglycerides 129 101 (35-135) mg/dL Cholesterol 184 161 (132-199) mg/dL HDL Cholesterol 52 53 (40-60) mg/dL Cholesterol/HDL Ratio 3.5 3.0 (0-4.0) RATIO CBC 01/04/18 Range/Units 01:42 WBC 8.8 (4.5-11.0) T/MM3 RBC 5.23 H (4.00-5.20) M/MM3 Hgb 15.0 (12-16) GM/DL Hct 45.3 (36-46) % Plt Count 321 (130-400) T/MM3 Neut # (Auto) 5.6 (1.8-7.7) T/MM3 Lymph # (Auto) 2.4 (1-4.8) T/MM3 [place] # (Auto) 0.5 (0-0.8) T/MM3 Eos # (Auto) 0.2 (0-0.5) T/MM3 Baso # (Auto) 0.0 (0-0.2) T/MM3 Comprehensive Metabolic Panel 01/04/18 Range/Units 01:42 Sodium 148 H (134-144) MEQ/L Potassium 4.8 (3.6-5) MEQ/L Chloride 109 H (98-107) MEQ/L Carbon Dioxide 27 (22-30) MEQ/L BUN 17.0 (7-17) MG/DL Creatinine 1.1 D (0.7-1.2) mg/dL Glucose 121 H (65-110) MG/DL Calcium 9.3 (8.4-10.2) MG/DL AST 21 (14-36) U/L ALT 21 (1-35) U/L Alkaline Phosphatase 100 (38-126) U/L Total Protein 7.7 (6.3-8.2) g/dL Albumin 4.2 (3.5-5.0) g/dL Intake and Output 01/03/18 01/04/18 01/04/18 22:59 06:59 14:59 Intake Total 254.683 / 254.683 Balance 254.683 / 254.683 Intake: IV 254.683 / 254.683 Heparin Drip 20,000 unit In 500 254.683 / 254.683 ml @ 30 mls/hr IV .[id number] [facility] Rx#:[id number] Other: # Voids 1 1 Weight 272 lb 14.916 oz 274 lb 0.553 oz Patient Weight 01/05/18 06:59 Weight 274 lb 0.553 oz - Imaging and Cardiology Imaging & Cardiology Narrative: Date of Exam: 01/03/18 Ordering Provider: Yunier Kaur MD Type of Exam(s): XR chest 1V Reason for Exam(s): left inframammary chest pain Indication: left inframammary chest pain PROCEDURE: XR chest 1V: Encounter: Initial Comparison: None FINDINGS: The lungs are clear. There is no abnormal airspace opacity, pleural effusion or pneumothorax identified. The heart size, pulmonary vasculature and mediastinum are within normal limits. No significant skeletal abnormality is seen. IMPRESSION: No acute cardiopulmonary abnormality. 01/04/18 14:39 01/04/18 14:39 Date of Exam: 01/04/18 Type of Exam(s): US echo doppler complete DATE OF PROCEDURE January 04, 2018 This is a two-dimensional echo with spectral Doppler, color-flow and M-mode. It was obtained in a patient with unstable angina. Left atrium is dilated. Left ventricle end-diastolic dimension is normal. Left ventricle wall thickness increased. LV systolic function is normal with ejection fraction of 62%. Right atrium is normal. Right ventricle is normal. Aortic root dimension is normal. Mitral valve is morphologically normal with mild mitral regurgitation. Aortic valve is a trileaflet structure with no stenosis. Trace of aortic insufficiency is present. Tricuspid valve shows mild tricuspid regurgitation with moderate pulmonary hypertension with estimated pulmonary artery systolic pressure of 53. Pulmonary valve shows trace of pulmonary insufficiency. There is no pericardial effusion. IMPRESSION 1. Normal LV systolic function with ejection fraction of 62%. 2. Left atrial dilation. 3. Left ventricular hypertrophy. 4. Mild mitral regurgitation. 5. Trace of aortic insufficiency. 6. Mild tricuspid regurgitation with moderate pulmonary hypertension with estimated pulmonary artery systolic pressure of 53. 7. Trace of pulmonary insufficiency. Discharge Plan - Med Rec/Dispo Referrals/Follow Up: Roel Villafuerte MD [Physician] - 2 Weeks Estiven [place] [facility] [place] Prescriptions: New Nitroglycerin [Nitrostat] 0.4 mg SL Q5MIN3 PRN #25 tab PRN Reason: Chest Pain Aspirin *EC* [Ecotrin] 81 mg PO DAILY #30 tab Atorvastatin [Lipitor] 40 mg PO HS #30 tab Lisinopril [Prinivil] 10 mg PO DAILY #30 tab Metoprolol Tartrate [Lopressor] 25 mg PO BIDWM #60 tab Continue Nitroglycerin [Nitrostat] 0.4 mg SL Q5MIN3 PRN PRN Reason: Chest Pain Turmeric 1 tab PO DAILY DiphenhydrAMINE [Benadryl] 25 mg PO Q4H PRN PRN Reason: Prn Orders - Disposition 02 To [facility] Acute Care - Dismissal Complete Discharge Instructions are:: Complete <Roel Villafuerte - Last Filed: 01/09/18 16:02> Discharge Information Date of admission: 01/03/18 23:49 Attending Physician: Roel Villafuerte MD Consults: 01/04/18 14:32 Outpt Cardiac Rehab Consult [CONS] Routine - Discharge Diagnosis (1) Unstable angina Status: Acute (2) Atherosclerotic heart disease of [place] coronary artery without angina pectoris Status: Chronic (3) Essential (primary) hypertension Status: Chronic (4) Mixed hyperlipidemia Status: Chronic (5) NSTEMI (non-ST elevated myocardial infarction) Status: Acute (6) Morbid obesity Status: Acute - Laboratory Labs: 01/04/18 01:42 01/04/18 01:42 Hospital Course This is a general summary of the patient's hospital course. For more details refer to the complete medical record. Exam Vital signs: Temperature 98.5 F 01/04/18 08:23 Pulse Rate 54 L 01/04/18 16:30 Respiratory Rate 23 01/04/18 16:30 Blood Pressure 146/76 H 01/04/18 16:30 Pulse Oximetry 97 01/04/18 14:45 Results 01/04/18 01:42 01/04/18 01:42 Attestation Narriative - Attestation Attestation Narrative: 01/09/18 16:02 Recommendation After examining the patient I agree with the above assessment. I am involved in the formulation of the patient's plan of care.
--- NOTE | 2018-01-04 16:28 | Cardiac Catheterization Report ---
DATE OF PROCEDURE January 04, 2018 INDICATIONS The patient is 57-year-old lady with history of coronary artery disease and abnormal troponin who was admitted with chest pain and unstable angina and was referred for further evaluation by cardiac catheterization and possible intervention. INFORM\ED CONSENT Informed consent was obtained after explaining the procedure and the potential risks to the patient who agreed to proceed with the procedure. PROCEDURE 1. Left heart catheterization. 2. Coronary angiography. 3. Left ventriculography. TECHNIQUE She was prepped and draped in the usual sterile techniques. Conscious sedation was performed using Versed and fentanyl. 1% lidocaine was used for local anesthesia. Using modified Seldinger technique, arterial access was obtained into the right radial artery with placement of a 6-Occitan arterial sheath. 300 mcg of nitroglycerin and 2.5 mg of verapamil were given through the arterial sheath. Heparin was not administered since the patient was on heparin drip. LEFT VENTRICULOGRAPHY Left ventriculography in [facility] shallow projection showed anterior akinesia with dilated left ventricle with ejection fraction of about 40-45% with no mitral regurgitation or gradient across the aortic valve. LVEDP was about 16. CORONARY ANGIOGRAPHY Left main was free of significant lesions. Left anterior descending artery was occluded with occlusion of the proximal stent. Diagonal artery was occluded with occlusion of the stent. Left circumflex artery had about 50% mid stenosis. Right coronary artery had an endovascular stent which was patent. Distal to the stent, there was a 30% stenosis. At the junction of the mid and distal third of the vessel, RCA had about 75% napkin ring lesion. The patient tolerated the procedure well with no complications. IMPRESSION 1. Anterior akinesia with ejection fraction of about 40-45%. 2. Coronary artery disease as described above. PLAN Will transfer and consult surgery for possible coronary artery bypass graft. This patient had anterior akinesia but collaterals were noted going from the right to left anterior descending and diagonal territories. One might consider viability study to check the viability of the anterior wall prior to coronary artery bypass graft. RAMON
[2018-01-04 16:53] VITALS: BP 146/76; PULSE 54; RESP 23; O2SAT 97
[2018-01-04] MEDS ORDERED: ATORVASTATIN 40 MG TABLET PO SCH (21:00)
[2018-01-05] MEDS ORDERED: LISINOPRIL 10 MG TABLET PO SCH (09:00)
== END 2018-01-04 16:46 | disposition short-term general hospital (02) | DRG 281 ==
LOC: ED 20:17 → SRG 23:49
PROVIDERS: ADMIT Internal Medicine Cardiovascular Disease; ATTEND Internal Medicine Cardiovascular Disease